=== PATIENT | male | born 1995 | race Caucasian/White ===

== ENCOUNTER → 2023-10-27 09:15 | Outpatient (REF) | payer OTHER, SELFPAY | LOC: RCS 09:15 | PROVIDERS: ATTENDING PHYSICIAN Internal Medicine Cardiovascular Disease | DX: R94.31 Abnormal electrocardiogram [ECG] [EKG] (principal) | CPT/HCPCS: 93306 ==

== ENCOUNTER 2023-12-01 02:49 | Emergency (ER) | payer OTHER, SELFPAY ==
[2023-12-01 02:50] VITALS: BP 158/84
--- NOTE | 2023-12-01 02:59 | ED.GENMED ---
History of Present Illness
General
Chief Complaint: Musculo-Skeletal Complaint
Time Seen by Provider: 12/01/23 02:59
History of Present Illness
History of Present Illness:
HPI: Patient presents due to left knee pain. Ice/Tylenol has not helped. Feels similar to prior bursitis that was treated w/ abx at urgent care a few months ago�at that time he reports having an unremarkable x-ray. Movement makes it worse. No
paresthesias. He has not followed up with orthopedics.
EXAM:
GENERAL: Well appearing in mild distress
HEENT: Moist oral mucosa
NEUROLOGIC: Excellent strength all extremities, no obvious coordination deficits
PSYCHIATRIC: Appropriate mental status, normal insight and judgement
EXTREMITIES: There is minimal left knee effusion, infrapatellar tenderness over the patellar tendon, he has markedly decreased active range of motion into flexion and extension due to pain
SKIN: No rash, no lesions
TIME OF INITIAL ENCOUNTER: 3:20 AM
NUMBER AND COMPLEXITY OF PROBLEMS ADDRESSED AT THE ENCOUNTER
� Chronic conditions affecting care: Asthma, has had left lateral malleolus fracture, remote history of Yanely-Schlatter disease
� Acute Exacerbation and/or Progression of Chronic Illness: This is an acute problem
� Differential Diagnosis includes: Bursitis, tendinitis, highly doubt septic joint, no clear evidence of cellulitis
AMOUNT AND/OR COMPLEXITY OF DATA TO BE REVIEWED AND ANALYZED
� I performed an independent evaluation of and my interpretation is:
EKG:
CT:
X-rays:
Laboratory Studies:
Other:
� Review of other/old records: I reviewed records, the patient had left ankle surgery in [address] Myers
� Clinical information was obtained by an independent historian: None needed
� Prescriptions/Medications Considered but not given:
� Further testing considered but not performed: Considered x-ray however the patient states he recently had an x-ray a few months ago.
RISK OF COMPLICATIONS AND/OR MORBIDITY OR MORTALITY OF PATIENT MANAGEMENT
� Social determinants of health affecting care: Lives at home
� Discussion with other providers:
� Escalation of care including admission/observation vs risk of discharge considered: The patient has pain primarily at the left patellar tendon and I suspect either tendinitis or bursitis. I recommended NSAIDs however the
patient strongly feels need for antibiotics as this has helped him with very similar presentation in the past. I also have given him contact information for orthopedics.
Past History
Past History
ED Past Medical History: Asthma
ED Past Surgical History: Orthopedic
Social History
Tobacco: Non-smoker
Personal: Single
Living: with family
Employment: Employed
Phy Exam
Physical Exam
Physical Exam:
See HPI
Course
Orders/Labs/Results
Orders:
Orders
12/01/23 03:35
Cephalexin Monohydrate [Keflex] 500 mg PO NOW STA
Ketorolac [Toradol] 30 mg IM NOW STA
Vital Signs
Initial and Last Documented VS:
Initial Vital Signs
Pulse Resp BP Pulse Ox
75 18 158/84 100
12/01/23 02:50 12/01/23 02:50 12/01/23 02:50 12/01/23 02:50
Last Documented Vital Signs
Pulse Resp BP Pulse Ox
75 18 158/84 100
12/01/23 02:50 12/01/23 02:50 12/01/23 02:50 12/01/23 02:50
*Critical Care Note
Total Time (30-74mins, 75-104mins- exclusive of procedures): Not Applicable
ED Attending Note
-
Portions of this chart may have been created with voice recognition software.� Occasional wrong word or��sound alike� substitutions may have occurred due to the inherent limitations of voice recognition software.
Discharge Plan
Departure
Patient Disposition: Home (Routine Discharge)
Date of Disposition: 12/01/23
Time of Disposition: 03:36
Patient with high blood pressure during this ER visit?: Yes
Discharge Problem:
Bursitis
Instructions: Bursitis (DC), BLOOD PRESSURE
Prescriptions:
New
cephalexin 500 mg tablet
500 mg PO TID Qty: 21 0RF
No Action
acetaminophen 650 mg Tablet
650 mg PO Q4H PRN (Reason: pain )
Referrals:
Robert Hurtado MD [Active] - Follow up in 2-3 days
Activity Restrictions/Additional Instructions:
I have given you the contact information for local orthopedist to follow-up with, Dr. Hurtado. I more strongly recommend ibuprofen/Motrin over Tylenol. You could take them both. Please follow-up with your primary care doctor. I recommend 3-4
[id number] ibuprofen (Motrin) every 8 hours with food for a few days. Return here if worse.
Interventions
Interventions:
*Risk Screen - Suicide Last Done: 12/01/23 02:50
*General Assessment Last Done: 12/01/23 02:50
*Neglect/Abuse Screening Last Done: 12/01/23 02:50
ED- Fall Risk Assessment Last Done: 12/01/23 03:20
*ED COVID-19 Vaccine History Last Done: 12/01/23 02:50
ED-Musculoskeletal Assessment Last Done: 12/01/23 03:20
Discharge Date and Time
Print Language: CROATIAN
[2023-12-01 03:20] VITALS: BMI 42.3
--- NOTE | 2023-12-01 03:44 | ED.ADDNOTE ---
ED Addendum
ED Addendum
ED Addendum Note:
This is an addendum to the ER note from 12/01/2023�the patient originally told me that it was antibiotics that helped him. He then clarified stating that it was a Medrol Dosepak. We told him not to take the antibiotic that was prescribed and I have
sent a prescription for Medrol Dosepak to his pharmacy.
[2023-12-01] MEDS: TORADOL 30 MG IM (03:45)
== END 2023-12-01 03:53 | disposition home or self-care (01) ==
LOC: EMR 02:49
PROVIDERS: EMERGENCY PHYSICIAN Emergency Medicine
DX: M70.52 Other bursitis of knee, left knee (principal); R03.0 Elevated blood-pressure reading, without diagnosis of hypertension; J45.909 Unspecified asthma, uncomplicated
CPT/HCPCS: 99284; 96372